=== PATIENT | male | born 1950 | race Caucasian/White ===

== ENCOUNTER 2018-04-02 10:04 | Emergency (ER) | payer MEDICARE, OTHER ==
[2018-04-02] MEDS ORDERED: Sodium Chloride 0.9% 10 ML Syringe FLUSH PRN (10:10)
--- NOTE | 2018-04-02 12:08 | EDM.PDOC ---
ED HPI GENERAL MEDICAL PROBLEM - General Chief Complaint: Abdominal Pain Stated Complaint: [facility] Time Seen by Provider: 04/02/18 10:07 Source of Information: Reports: Patient, EMS, Family, Provider History Limitations: Reports: No Limitations - History of Present Illness INITIAL COMMENTS - FREE TEXT/NARRATIVE: The patient presents by [facility] for epigastric pain that radiates to his back. He was at the local cafe in [place] getting a cup of coffee this morning. He then developed epigastric pain that radiates to his back. He got diaphoretic and he was short of breath. He went to the clinic. The did an EKG that was normal. They gave him aspirin and the pain went away. He was pain free when he arrived here. He is diabetic. He has no history of HTN. He has no CAD. He does have a family history of heart disease. He has been nauseated this past week but no vomiting. He has no gallbladder. This all started at 8: 15 this morning. Onset: Sudden Duration: Hour(s): Location: Reports: Abdomen (Epigastric) Quality: Reports: Sharp Severity: Severe Improves with: Reports: None Worsens with: Reports: None Associated Symptoms: Reports: Shortness of Breath. Denies: Chest Pain, Cough, Fever/Chills, Headaches, Nausea/Vomiting - Related Data Allergies Allergy/AdvReac Type Severity Reaction Status Date / Time lisinopril Allergy Severe Arrhythmias Verified 04/02/18 10:17 Penicillins Allergy Severe Anaphylactic Verified 04/02/18 10:17 Shock Home Meds: Home Meds Dulaglutide [Trulicity] 1 pen SQ ASDIRECTED 04/26/16 [History] Furosemide 40 mg PO DAILY 04/26/16 [History] Insulin Aspart [NovoLOG] 0 units SQ ASDIRECTED 04/26/16 [History] Insulin Glargine,Hum.Rec.Anlog [Toujeo Solostar] 65 unit SQ DAILY 04/26/16 [ History] Losartan [Cozaar] 50 mg PO DAILY 04/26/16 [History] Fish Oil/[place]-3 Fatty Acids [Fish Oil 1,000 MG] 1 gram PO DAILY 04/02/18 [ History] traZODone HCl [Trazodone HCl] 200 mg PO BEDTIME 04/02/18 [History] Past Medical History HEENT History: Reports: Sinusitis, Other (See Below) Other HEENT History: tinnitus Cardiovascular History: Reports: Hypertension Respiratory History: Reports: Sleep Apnea Gastrointestinal History: Reports: Chronic Diarrhea, Diverticulosis Musculoskeletal History: Reports: Back Pain, Chronic, Fibromyalgia Endocrine/Metabolic History: Reports: Diabetes, Type II - Past Surgical History HEENT Surgical History: Reports: Tonsillectomy GI Surgical History: Reports: Cholecystectomy ED ROS GENERAL - Review of Systems Review Of Systems: See Below Constitutional: Reports: No Symptoms HEENT: Reports: No Symptoms Respiratory: Reports: No Symptoms Cardiovascular: Reports: No Symptoms Endocrine: Reports: No Symptoms GI/Abdominal: Reports: Abdominal Pain. Denies: Diarrhea, Nausea, Vomiting : Reports: No Symptoms ED EXAM, GI/ABD - Physical Exam Exam: See Below Exam Limited By: No Limitations General Appearance: Alert, No Apparent Distress Ears: Normal External Exam Nose: Normal Inspection Head: Atraumatic, Normocephalic Neck: Normal Inspection Respiratory/Chest: No Respiratory Distress, Lungs Clear, Normal Breath Sounds Cardiovascular: Regular Rate, Rhythm, No Edema, No Murmur GI/Abdominal Exam: Soft, Non-Tender, No Organomegaly, No Mass Back Exam: Normal Inspection Extremities: Normal Inspection Neurological: Alert, Oriented, No Motor/Sensory Deficits EKG INTERPRETATION EKG Date: 04/02/18 Time: 10:08 Rhythm: NSR Rate (Beats/Min): 86 [place]: Normal P-Wave: Present QRS: Normal ST-T: Normal QT: Normal Course - Vital Signs Last Recorded V/S: Last Vital Signs Temp 98.3 F 04/02/18 10:17 Pulse 85 04/02/18 10:17 Resp 24 H 04/02/18 10:17 BP 150/78 H 04/02/18 10:17 Pulse Ox 96 04/02/18 10:17 - Orders/Labs/Meds Orders: Active Orders 24 hr Category Date Time Status Cardiac Monitoring [RC] . DIRECTED Care 04/02/18 10:11 Active EKG Documentation Completion [RC] ASDIRECTED Care 04/02/18 12:57 Active EKG Documentation Completion [RC] STAT Care 04/02/18 10:11 Active Oxygen Therapy [RC] PRN Care 04/02/18 10:11 Active Peripheral IV Care [RC] . DIRECTED Care 04/02/18 10:11 Active Sodium Chloride 0.9% [Saline Flush] Med 04/02/18 10:10 Active 10 ml FLUSH ASDIRECTED PRN Peripheral IV Insertion Adult [OM.PC] Stat Oth 04/02/18 10:10 Ordered EKG 12 Lead [EK] Stat Ther 04/02/18 12:57 Ordered Medication Orders Sodium Chloride (Saline Flush) 10 ml FLUSH ASDIRECTED PRN PRN Reason: Keep Vein Open Last Admin: 04/02/18 10:47 Dose: 10 ml Labs: Laboratory Tests 04/02/18 04/02/18 04/02/18 Range/Units 09:26 09:26 09:26 WBC 9.05 (4.23-9.07) K/mm3 RBC 4.83 (4.63-6.08) M/mm3 Hgb 14.0 (13.7-17.5) gm/L Hct 41.9 (40.1-51.0) % MCV 86.7 (79.0-92.2) fl MCH 29.0 (25.7-32.2) pg MCHC 33.4 (32.2-35.5) g/dl RDW Std Deviation 43.1 (35.1-43.9) fL Plt Count 249 (163-337) K/mm3 MPV 10.5 (9.4-12.3) fl Neut % (Auto) 67.9 (34.0-67.9) % Lymph % (Auto) 19.9 L (21.8-53.1) % [place] % (Auto) 8.7 (5.3-12.2) % Eos % (Auto) 2.5 (0.8-7.0) Baso % (Auto) 0.6 (0.1-1.2) % Neut # (Auto) 6.14 H (1.78-5.38) K/mm3 Lymph # (Auto) 1.80 (1.32-3.57) K/mm3 [place] # (Auto) 0.79 (0.30-0.82) K/mm3 Eos # (Auto) 0.23 (0.04-0.54) K/mm3 Baso # (Auto) 0.05 (0.01-0.08) K/mm3 D-Dimer, Quantitative 0.32 (0.19-0.50) mg/L Sodium 139 (136-145) mEq/L Potassium 4.0 (3.5-5.1) mEq/L Chloride 105 (98-107) mEq/L Carbon Dioxide 25 (21-32) mEq/L Anion Gap 13.0 (5-15) BUN 19 H (7-18) mg/dL Creatinine 1.0 (0.7-1.3) mg/dL Est Cr Clr Drug Dosing 68.85 mL/min Estimated GFR (MDRD) > 60 (>60) mL/min BUN/Creatinine Ratio 19.0 H (14-18) Glucose 175 H (80-115) mg/dL Calcium 8.5 (8.5-10.1) mg/dL Total Bilirubin 0.2 (0.2-1.0) mg/dL AST 35 (15-37) U/L ALT 55 (16-63) U/L Alkaline Phosphatase 93 (46-116) U/L Troponin I < 0.017 (0.00-0.056) ng/mL Total Protein 7.8 (6.4-8.2) g/dl Albumin 3.2 L (3.4-5.0) g/dl Globulin 4.6 gm/dL Albumin/Globulin Ratio 0.7 L (1-2) //18 Range/Units 13:20 WBC (4.23-9.07) K/mm3 RBC (4.63-6.08) M/mm3 Hgb (13.7-17.5) gm/L Hct (40.1-51.0) % MCV (79.0-92.2) fl MCH (25.7-32.2) pg MCHC (32.2-35.5) g/dl RDW Std Deviation (35.1-43.9) fL Plt Count (163-337) K/mm3 MPV (9.4-12.3) fl Neut % (Auto) (34.0-67.9) % Lymph % (Auto) (21.8-53.1) % [place] % (Auto) (5.3-12.2) % Eos % (Auto) (0.8-7.0) Baso % (Auto) (0.1-1.2) % Neut # (Auto) (1.78-5.38) K/mm3 Lymph # (Auto) (1.32-3.57) K/mm3 [place] # (Auto) (0.30-0.82) K/mm3 Eos # (Auto) (0.04-0.54) K/mm3 Baso # (Auto) (0.01-0.08) K/mm3 D-Dimer, Quantitative (0.19-0.50) mg/L Sodium (136-145) mEq/L Potassium (3.5-5.1) mEq/L Chloride (98-107) mEq/L Carbon Dioxide (21-32) mEq/L Anion Gap (5-15) BUN (7-18) mg/dL Creatinine (0.7-1.3) mg/dL Est Cr Clr Drug Dosing mL/min Estimated GFR (MDRD) (>60) mL/min BUN/Creatinine Ratio (14-18) Glucose (80-115) mg/dL Calcium (8.5-10.1) mg/dL Total Bilirubin (0.2-1.0) mg/dL AST (15-37) U/L ALT (16-63) U/L Alkaline Phosphatase (46-116) U/L Troponin I < 0.017 (0.00-0.056) ng/mL Total Protein (6.4-8.2) g/dl Albumin (3.4-5.0) g/dl Globulin gm/dL Albumin/Globulin Ratio (1-2) Meds: Medications Generic Name Dose Route Start Last Admin Trade Name Freq PRN Reason Stop Dose Admin Sodium Chloride 10 ml 04/02/18 10:10 04/02/18 10:47 Saline Flush FLUSH 10 ml ASDIRECTED PRN Administration Keep Vein Open - Re-Assessments/Exams Free Text/Narrative Re-Assessment/Exam: 04/02/18 12:21 I ordered an IV saline lock, EKG, CXR, and labs. His EKG shows a NSR with no acute changes. His CBC and CMP look good. His troponin is negative. 04/02/18 14:25 I did a repeat EKG and there is no acute changes. His troponin is negative. He is doing good. I will try to schedule a stress test for him. 04/02/18 14:34 The soonest they can get him in is April 20. I have scheduled the test. I will call Flores Frey and let her know. Departure - Departure Time of Disposition: 14:30 Disposition: Home, Self-Care 01 Condition: Good Clinical Impression: Epigastric pain - Discharge Information Referrals: Flores Frey, CLIENT RENEWAL SPECIALIST [Primary Care Provider] - 1 Week Forms: ED Department Discharge Additional Instructions: Take your medication as prescribed. I have ordered a stress test for April 20 at 7:15. Please come early to register. Do not eat or drink after midnight before the test. Do not drink caffeine 12 hours before the test. Do not take your cozaar 24 hours before the test. Please return if you are worse. - My Orders Last 24 Hours: My Active Orders 04/02/18 10:10 Sodium Chloride 0.9% [Saline Flush] 10 ml FLUSH ASDIRECTED PRN Peripheral IV Insertion Adult [OM.PC] Stat 04/02/18 10:11 Cardiac Monitoring [RC] . DIRECTED EKG Documentation Completion [RC] STAT Oxygen Therapy [RC] PRN Peripheral IV Care [RC] . DIRECTED 04/02/18 12:57 EKG Documentation Completion [RC] ASDIRECTED EKG 12 Lead [EK] Stat - Assessment/Plan Last 24 Hours: My Active Orders 04/02/18 10:10 Sodium Chloride 0.9% [Saline Flush] 10 ml FLUSH ASDIRECTED PRN Peripheral IV Insertion Adult [OM.PC] Stat 04/02/18 10:11 Cardiac Monitoring [RC] . DIRECTED EKG Documentation Completion [RC] STAT Oxygen Therapy [RC] PRN Peripheral IV Care [RC] . DIRECTED 04/02/18 12:57 EKG Documentation Completion [RC] ASDIRECTED EKG 12 Lead [EK] Stat
--- NOTE | 2018-04-02 12:35 | CR ---
Chest: Portable view of the chest was obtained. Comparison: No prior chest x-ray. Heart size and mediastinum are within normal limits. Lungs are clear without acute parenchymal change. Bony structures are grossly intact. Impression: 1. Nothing acute is seen on portable chest x-ray. Diagnostic code #1
[2018-04-02 15:16] VITALS: BP 173/88
== END 2018-04-02 15:10 | disposition home or self-care (01) ==
LOC: JD.ED 10:04
DX: R10.13 Epigastric pain (principal); I10 Essential (primary) hypertension; E11.9 Type 2 diabetes mellitus without complications; Z88.0 Allergy status to penicillin; Z88.8 Allergy status to other drugs, medicaments and biological substances; Z79.899 Other long term (current) drug therapy
CPT/HCPCS: 36415; 71045; 80053; 84484; 85025; 85379; 93005; 99285; J7050; 93010; 99284

== ENCOUNTER 2021-05-01 14:13 | Emergency (ER) | payer MEDICARE, OTHER ==
[2021-05-01 14:31] VITALS: BP 203/75; PULSE 102
--- NOTE | 2021-05-01 15:24 | EDM.PDOC ---
ED HPI GENERAL MEDICAL PROBLEM - General Chief Complaint: Abdominal Pain Stated Complaint: RT SIDE PAIN Time Seen by Provider: 05/01/21 14:25 Source of Information: Reports: Patient, RN Notes Reviewed History Limitations: Reports: No Limitations - History of Present Illness INITIAL COMMENTS - FREE TEXT/NARRATIVE: Patient is a 70-year-old male presenting to the emergency department with complaints of right lateral and right upper quadrant abdominal pain that began yesterday. Reports the pain has been fairly constant since yesterday, however he takes Motrin earlier in the day and it did improve somewhat. Denies any nausea or vomiting. He did have a normal bowel movement yesterday, however when he went today the stool was quite hard. Denies any fever or chills. He does have a history of previous cholecystectomy. Right Abdominal Pain Score (Numeric/FACES): 7 - Related Data Allergies Allergy/AdvReac Type Severity Reaction Status Date / Time lisinopril Allergy Severe Arrhythmias Verified 05/01/21 14:31 Penicillins Allergy Severe Anaphylactic Verified 05/01/21 14:31 Shock Home Meds: Home Meds Dulaglutide [Trulicity] 1 pen SQ MO 04/26/16 [History] Furosemide 40 mg PO DAILY 04/26/16 [History] Insulin Aspart [NovoLOG] 0 units SQ ASDIRECTED 04/26/16 [History] Losartan [Cozaar] 50 mg PO DAILY 04/26/16 [History] traZODone HCl [Trazodone HCl] 200 mg PO BEDTIME 04/02/18 [History] Cholecalciferol (Vitamin D3) [Vitamin D3] 5,000 intnl unit PO DAILY 05/01/21 [History] Empagliflozin [Jardiance] 25 mg PO DAILY 05/01/21 [History] Past Medical History HEENT History: Reports: Sinusitis, Other (See Below) Other HEENT History: tinnitus Cardiovascular History: Reports: Hypertension Respiratory History: Reports: Bronchitis, Recurrent, Pneumonia, Recurrent, Sleep Apnea Gastrointestinal History: Reports: Chronic Diarrhea, Diverticulosis Musculoskeletal History: Reports: Back Pain, Chronic, Fracture, Fibromyalgia Endocrine/Metabolic History: Reports: Diabetes, Type II - Infectious Disease History Infectious Disease History: Reports: Chicken Pox, Influenza, Measles, Mumps, Novel Coronavirus, Shingles - Past Surgical History HEENT Surgical History: Reports: Tonsillectomy GI Surgical History: Reports: Cholecystectomy Social & Family History - Tobacco Use Tobacco Use Status *Q: Never Tobacco User Second Hand Smoke Exposure: No - Caffeine Use Caffeine Use: Reports: Coffee - Recreational Drug Use Recreational Drug Use: No ED ROS GENERAL - Review of Systems Review Of Systems: See Below Constitutional: Reports: No Symptoms. Denies: Fever, Chills, Weakness HEENT: Reports: No Symptoms Respiratory: Reports: No Symptoms Cardiovascular: Reports: No Symptoms Endocrine: Reports: No Symptoms GI/Abdominal: Reports: Abdominal Pain (Right upper quadrant and right lateral), Constipation. Denies: Diarrhea, Nausea, Vomiting : Reports: No Symptoms Musculoskeletal: Reports: No Symptoms Skin: Reports: No Symptoms Neurological: Reports: No Symptoms Psychiatric: Reports: No Symptoms Hematologic/Lymphatic: Reports: No Symptoms Immunologic: Reports: No Symptoms ED EXAM, GI/ABD - Physical Exam Exam: See Below Exam Limited By: No Limitations General Appearance: Alert, WD/WN, No Apparent Distress Respiratory/Chest: No Respiratory Distress, Lungs Clear, Normal Breath Sounds, No Accessory Muscle Use, Chest Non-Tender Cardiovascular: Normal Peripheral Pulses, Regular Rate, Rhythm, No Edema, No Gallop, No JVD, No Murmur, No Rub GI/Abdominal Exam: Normal Bowel Sounds, Soft, No Organomegaly, No Distention, No Abnormal Bruit, No Mass, Pelvis Stable, Tender (Tenderness to the right upper and right lateral abdomen. Mild right CVA tenderness.) Neurological: Alert, Oriented, CN II-XII Intact, Normal Cognition, Normal Gait, Normal Reflexes, No Motor/Sensory Deficits Psychiatric: Normal Affect, Normal Mood Skin Exam: Warm, Dry, Intact, Normal Color, No Rash Course - Vital Signs Last Recorded V/S: Last Vital Signs Temp 96.2 F L 05/01/21 14:20 Pulse 102 H 05/01/21 14:20 Resp 22 H 05/01/21 14:20 BP 203/75 H 05/01/21 14:20 Pulse Ox 95 05/01/21 14:20 - Orders/Labs/Meds Orders: Active Orders 24 hr Category Date Time Status Abdomen 2V AP Flat Upright [CR] Stat Exams 05/01/21 14:50 Taken Labs: Laboratory Tests 05/01/21 05/01/21 05/01/21 Range/Units 15:20 15:20 16:20 WBC 9.67 H (4.23-9.07) K/mm3 RBC 4.69 (4.63-6.08) M/mm3 Hgb 13.6 L (13.7-17.5) gm/dl Hct 41.7 (40.1-51.0) % MCV 88.9 (79.0-92.2) fl MCH 29.0 (25.7-32.2) pg MCHC 32.6 (32.2-35.5) g/dl RDW Std Deviation 48.2 H (35.1-43.9) fL Plt Count 221 (163-337) K/mm3 MPV 10.5 (9.4-12.3) fl Neut % (Auto) 65.2 (34.0-67.9) % Lymph % (Auto) 21.9 (21.8-53.1) % [place] % (Auto) 8.6 (5.3-12.2) % Eos % (Auto) 3.2 (0.8-7.0) Baso % (Auto) 0.6 (0.1-1.2) % Neut # (Auto) 6.30 H (1.78-5.38) K/mm3 Lymph # (Auto) 2.12 (1.32-3.57) K/mm3 [place] # (Auto) 0.83 H (0.30-0.82) K/mm3 Eos # (Auto) 0.31 (0.04-0.54) K/mm3 Baso # (Auto) 0.06 (0.01-0.08) K/mm3 Sodium 140 (136-145) mEq/L Potassium 4.3 (3.5-5.1) mEq/L Chloride 104 (98-107) mEq/L Carbon Dioxide 27 (21-32) mEq/L Anion Gap 13.3 (5-15) BUN 14 (7-18) mg/dL Creatinine 1.0 (0.7-1.3) mg/dL Est Cr Clr Drug Dosing 70.70 mL/min Estimated GFR (MDRD) > 60 (>60) mL/min BUN/Creatinine Ratio 14.0 (14-18) Glucose 252 H (70-99) mg/dL Calcium 8.1 L (8.5-10.1) mg/dL Total Bilirubin 0.3 (0.2-1.0) mg/dL AST 32 (15-37) U/L ALT 48 (16-63) U/L Alkaline Phosphatase 113 (46-116) U/L C-Reactive Protein 4.9 H* (<1.0) mg/dL Total Protein 7.8 (6.4-8.2) g/dl Albumin 3.2 L (3.4-5.0) g/dl Globulin 4.6 gm/dL Albumin/Globulin Ratio 0.7 L (1-2) Lipase 68 L (73-393) U/L Urine Color Yellow (Yellow) Urine Appearance Clear (Clear) Urine pH 6.0 (5.0-8.0) Ur Specific [place] 1.025 (1.005-1.030) Urine Protein 1+ H (Negative) Urine Glucose (UA) 2+ H (Negative) Urine Ketones Negative (Negative) Urine Occult Blood Negative (Negative) Urine Nitrite Negative (Negative) Urine Bilirubin Negative (Negative) Urine Urobilinogen 0.2 (0.2-1.0) Ur Leukocyte Esterase Negative (Negative) Urine RBC 0-5 (0-5) /hpf Urine WBC 0-5 (0-5) /hpf Ur Squamous Epith Cells 0-5 (0-5) /hpf Urine Bacteria Few (FEW) /hpf Urine Mucus Few (FEW) /hpf Meds: Medications Discontinued Medications Generic Name Dose Route Start Last Admin Trade Name Freq PRN Reason Stop Dose Admin Magnesium Citrate 296 ml 05/01/21 17:00 05/01/21 17:05 Magnesium Citrate Solution 296 Ml Bottle PO 05/01/21 17:01 296 ml ONETIME ONE Administration - Re-Assessments/Exams Free Text/Narrative Re-Assessment/Exam: Pt is a 70 year old male presenting to the ER with c/o right lateral abdominal pain with mild right back pain. Has had previous cholecysectomy. No nausea or vomiting. Had BM today and states that the stool was more hard than normal. On exam, pt has mild tenderness to the right upper and right lateral abdomen as well as some mild CVA tenderness. I have ordered blood work, urinalysis, and an abdomen 2V xray. Pt denies the need for pain medications at this time. 05/01/21 16:56 Hematology was significant for glucose 252 CRP minimally elevated at 4.9. Urinalysis was negative for blood or infection. Abdomen flat and upright x-ray shows a significant amount of stool collection throughout the colon. This is likely the cause of the patient's discomfort as he has had no fever or chills as well as no nausea or vomiting. He does report hard stools today. We will send him home with a bottle of magnesium citrate. Discussed that if his symptoms fail to improve after he has had bowel movements, recommend follow-up either in the clinic or the ER. He verbalized understanding of this and is in agreement with this plan. Discharge instructions as documented. Departure - Departure Time of Disposition: 16:56 Disposition: Home, Self-Care 01 Condition: Good Clinical Impression: Abdominal pain Qualifiers: Abdominal location: right upper quadrant Qualified Code(s): R10.11 - Right upper quadrant pain - Discharge Information *PRESCRIPTION DRUG MONITORING PROGRAM REVIEWED*: No *COPY OF PRESCRIPTION DRUG MONITORING REPORT IN PATIENT VERONICA: No Instructions: Constipation, Adult, [id number] Referrals: Flores Frey, [employer] [Primary Care Provider] - Forms: ED Department Discharge Additional Instructions: You were seen in the emergency department today for right upper and lateral abdominal pain for the last few days. Work-up included blood work, urinalysis, and abdomen flat number. Results of the work-up show that you have a significant amount of stool collection throughout the colon. This is likely the cause of your discomfort. You have been sent home with a bottle of magnesium citrate. Recommend drinking the entire bottle when you get home. This should produce bowel movements after a few hours. If your symptoms fail to improve after you have had a number of bowel movements or you experience any worsening symptoms, please do not hesitate to return to the emergency department for reevaluation. Sepsis Event Note (ED) - Evaluation Sepsis Screening Result: No Definite Risk - Focused Exam Vital Signs: Vital Signs Temp Pulse Resp BP Pulse Ox 05/01/21 14:20 96.2 F L 102 H 22 H 203/75 H 95 - My Orders Last 24 Hours: My Active Orders 05/01/21 14:50 Abdomen 2V AP Flat Upright [CR] Stat - Assessment/Plan Last 24 Hours: My Active Orders 05/01/21 14:50 Abdomen 2V AP Flat Upright [CR] Stat
[2021-05-01] MEDS ORDERED: Magnesium Citrate Solution 296 ML Bottle PO ONE (17:00)
--- NOTE | 2021-05-02 08:24 | CR ---
Abdomen: Supine and upright views of the abdomen were obtained. Comparison: No prior abdominal imaging is available. Findings: Electronic device is seen overlying the upper right abdomen. Surgical clips are seen from prior cholecystectomy. Bowel gas pattern is within normal limits. No abnormal calcifications or soft tissue abnormality is seen. No free air is seen. Mild scattered degenerative change is seen within the spine. Impression: 1. Findings as noted above. 2. Nothing acute is seen. Diagnostic code #2
== END 2021-05-01 17:06 | disposition home or self-care (01) ==
LOC: JD.ED 14:13
DX: R10.11 Right upper quadrant pain (principal); E11.9 Type 2 diabetes mellitus without complications; I10 Essential (primary) hypertension; Z90.49 Acquired absence of other specified parts of digestive tract; Z88.0 Allergy status to penicillin; Z88.8 Allergy status to other drugs, medicaments and biological substances
CPT/HCPCS: 36415; 74019; 80053; 81001; 83690; 85025; 86140; 99284; A9270; 99283

== ENCOUNTER 2023-06-27 14:05 | Emergency (ER) | payer MEDICARE, OTHER ==
[2023-06-27] MEDS ORDERED: Orphenadrine 100 MG Tab.ER PO STA (14:27)
[2023-06-27 15:15] LABS: BASOPHILS ABSOLUTE AUTO 0.05 K/mm3 (0.01-0.08); BASOPHILS PERCENT AUTO 0.5 % (0.1-1.2); EOSINOPHILS ABSOLUTE AUTO 0.17 K/mm3 (0.04-0.54); EOSINOPHILS PERCENT AUTO 1.6 (0.8-7.0); HEMATOCRIT 46.6 % (40.1-51.0); HEMOGLOBIN 15.2 gm/dl (13.7-17.5); IMMATURE GRAN ABSOLUTE AUTO 0.05 K/mm3 (0.00-0.10); IMMATURE GRAN PERCENT AUTO 0.5 % (<=1.0); LYMPHOCYTES ABSOLUTE AUTO 2.12 K/mm3 (1.32-3.57); LYMPHOCYTES PERCENT AUTO 19.6 % (21.8-53.1); MEAN CORPUSCULAR HEMOGLOBIN 29.5 pg (25.7-32.2); MEAN CORPUSCULAR HGB CONC 32.6 g/dl (32.2-35.5); MEAN CORPUSCULAR VOLUME 90.3 fl (79.0-92.2); MEAN PLATELET VOLUME 10.5 fl (9.4-12.3); MONOCYTES PERCENT AUTO 7.4 % (5.3-12.2); NEUTROPHILS PERCENT AUTO 70.4 % (34.0-67.9); PLATELET COUNT,PLT 198 K/mm3 (163-337); RED BLOOD CELL COUNT 5.16 M/mm3 (4.63-6.08); WHITE BLOOD CELL COUNT,WBC 10.79 K/mm3 (4.23-9.07)
[2023-06-27 15:33] LABS: A/G RATIO 0.7 (1-2); ALBUMIN 3.6 g/dl (3.4-5.0); ANION GAP 11.4 (5-15); BILIRUBIN TOTAL 0.3 mg/dL (0.2-1.0); BUN/CREATININE RATIO 13.6 (14-18); CALCIUM 8.7 mg/dL (8.5-10.1); CREATININE 1.1 mg/dL (0.7-1.3); EST CRCL DRUG DOSING (CG) 60.45 mL/min; MAGNESIUM 2.1 mg/dL (1.8-2.4); POTASSIUM,K 4.4 mEq/L (3.5-5.1); PROTEIN TOTAL,TP 8.6 g/dl (6.4-8.2)
[2023-06-27] MEDS ORDERED: Ketorolac 60 MG/2 ML SDV IM ONE (15:37)
[2023-06-27] MEDS ORDERED: Lidocaine 4% 1 each Patch TOP STA (15:50)
[2023-06-27 17:46] VITALS: BP 151/76; PULSE 80
== END 2023-06-27 17:45 | disposition home or self-care (01) ==
LOC: JD.ED 14:05
DX: M54.50 Low back pain, unspecified (principal); E11.9 Type 2 diabetes mellitus without complications; I10 Essential (primary) hypertension; Z86.16 Personal history of COVID-19; Z79.4 Long term (current) use of insulin; Z79.899 Other long term (current) drug therapy; Z88.0 Allergy status to penicillin; Z88.8 Allergy status to other drugs, medicaments and biological substances
CPT/HCPCS: 36415; 80053; 83735; 85025; 96372; 99283; A9270; J1885

== ENCOUNTER 2024-04-15 23:10 | Emergency (ER) | payer MEDICARE, OTHER ==
[2024-04-16 00:08] LABS: BASOPHILS ABSOLUTE AUTO 0.1 K/mm3 (0.0-0.2); BASOPHILS PERCENT AUTO 0.7 % (0.0-1.0); EOSINOPHILS ABSOLUTE AUTO 0.4 K/mm3 (0.0-0.4); EOSINOPHILS PERCENT AUTO 2.7 % (0.0-6.0); HEMATOCRIT 46.6 % (42.0-52.0); HEMOGLOBIN 14.9 gm/dl (14.0-18.0); IMMATURE GRAN ABSOLUTE AUTO 0.13 K/mm3 (0.00-0.05); IMMATURE GRAN PERCENT AUTO 0.9 % (0.0-0.4); LYMPHOCYTES PERCENT AUTO 21.1 % (24.0-44.0); MEAN CORPUSCULAR HEMOGLOBIN 26.8 pg (28.0-32.0); MEAN CORPUSCULAR VOLUME 83.8 fl (83.0-99.0); MEAN PLATELET VOLUME 10.1 fl (9.4-12.4); MONOCYTES ABSOLUTE AUTO 1.2 K/mm3 (0.0-0.8); MONOCYTES PERCENT AUTO 8.4 % (0.0-8.0); NEUTROPHILS ABSOLUTE AUTO 9.3 K/mm3 (1.8-7.7); NEUTROPHILS PERCENT AUTO 66.2 % (41.0-71.0); PLATELET COUNT,PLT 238 K/mm3 (150-400); RED BLOOD CELL COUNT 5.56 M/mm3 (4.52-5.90)
[2024-04-16 00:32] LABS: A/G RATIO 0.8 (1-2); ALBUMIN 3.4 g/dl (3.4-5.0); ANION GAP 11.7 (5-15); BILIRUBIN TOTAL 0.3 mg/dL (0.2-1.0); BUN/CREATININE RATIO 21.5 (14-18); CALCIUM 8.4 mg/dL (8.5-10.1); EST CRCL DRUG DOSING (CG) 33.88 mL/min; MAGNESIUM 2.3 mg/dL (1.8-2.4); POTASSIUM,K 4.7 mEq/L (3.5-5.1); PROTEIN TOTAL,TP 7.9 g/dl (6.4-8.2)
[2024-04-16 01:40] VITALS: BP 109/63; PULSE 84
== END 2024-04-16 01:30 | disposition home or self-care (01) ==
LOC: JD.ED 23:10
DX: R42 Dizziness and giddiness (principal); E11.65 Type 2 diabetes mellitus with hyperglycemia; N28.9 Disorder of kidney and ureter, unspecified; I10 Essential (primary) hypertension; Z88.0 Allergy status to penicillin; Z88.8 Allergy status to other drugs, medicaments and biological substances; Z79.4 Long term (current) use of insulin; Z79.899 Other long term (current) drug therapy; Z86.16 Personal history of COVID-19; Z90.49 Acquired absence of other specified parts of digestive tract
CPT/HCPCS: 36415; 80053; 82947; 83735; 84484; 85025; 93005; 93010; 99283; 99284

== ENCOUNTER 2025-03-16 08:47 | Day surgery (SDC) | payer MEDICARE, OTHER ==
[~2025-03-16 08:47] MED LIST: Sodium Chloride 0.9% 10 ML Syringe FLUSH PRN; Sodium Chloride 0.9% 10 ML Syringe FLUSH SCH
[2025-03-16] MEDS: Lactated Ringers 1,000 ML IV SCH (09:10)
[2025-03-16] MEDS: Clindamycin Phosphate in D5W 900 MG in Premix Bag 1 BAG IV ONE (09:29)
[2025-03-16] MEDS ORDERED: Propofol 200 MG/20 ML SDV ONE ×4 (09:49→10:37)
[2025-03-16] MEDS ORDERED: fentaNYL 250 MCG/5 ML SDV ONE (09:52)
[2025-03-16] MEDS ORDERED: Rocuronium 50 MG/5 ML Vial ONE (09:53)
[2025-03-16] MEDS ORDERED: Dexamethasone 4 MG/ML 5 ML MDV ONE (10:23)
[2025-03-16] MEDS ORDERED: Ondansetron 4 MG/2 ML SDV ONE (10:23)
[2025-03-16] MEDS ORDERED: dexmedeTOMIDine HCl 200 MCG/2 ML SDV ONE (10:23)
[2025-03-16] MEDS ORDERED: ePHEDrine 50 MG/ML SDV ONE (10:27)
[2025-03-16] MEDS ORDERED: Lactated Ringers 1,000 ML ONE (10:52)
[2025-03-16] MEDS: Bupivacaine 0.25% 10 ML SDV ONE (11:00)
[2025-03-16] MEDS ORDERED: Sugammadex Sodium 200 MG/2 ML VIAL IV ONE ×2 (11:12→11:19)
[2025-03-16] MEDS ORDERED: Ondansetron 4 MG/2 ML SDV IVPUSH PRN (11:35)
[2025-03-16] MEDS ORDERED: HYDROmorphone 0.5 MG/0.5 ML Syringe IVPUSH PRN (11:35)
[2025-03-16] MEDS: fentaNYL 100 MCG/2 ML SDV IVPUSH PRN (11:44)
[2025-03-16] MEDS: Acetaminophen/HYDROcodone 325-5 MG Tab PO PRN (12:57)
[2025-03-16 13:45] VITALS: BP 148/74; PULSE 102
== END 2025-03-16 13:20 | disposition home or self-care (01) ==
LOC: JD.SDS 08:47
PROVIDERS: ATTEND Orthopaedic Surgery
DX: G56.22 Lesion of ulnar nerve, left upper limb (principal); I13.0 Hypertensive heart and chronic kidney disease with heart failure and stage 1 through stage 4 chronic kidney disease, or unspecified chronic kidney disease; E11.22 Type 2 diabetes mellitus with diabetic chronic kidney disease; N18.31 Chronic kidney disease, stage 3a; I50.9 Heart failure, unspecified; E11.40 Type 2 diabetes mellitus with diabetic neuropathy, unspecified; N40.0 Benign prostatic hyperplasia without lower urinary tract symptoms; Z79.4 Long term (current) use of insulin; Z79.899 Other long term (current) drug therapy; Z88.0 Allergy status to penicillin; Z88.8 Allergy status to other drugs, medicaments and biological substances
CPT/HCPCS: 64718; A9270; J0665; J0736; J1100; J2405; J2704; J3010; J7120; J3490